=== PATIENT | female | born 1995 | race Caucasian/White ===

== ENCOUNTER 2017-03-29 19:19 | Emergency (ER) | payer OTHER ==
[~2017-03-29] VITALS: Ht 162.6 cm; Wt 48.1 kg
[~2017-03-29 19:19] MED LIST: AMOXICILLIN500 M1 PO; AMOXICILLIN500 MG PO; AUGMENTIN875 MG PO; BENTYL10 MG PO; COLACE100 MG PO; ENDOCET 5-3251 EACH PO; FLONASE16 G1 BOTH NARES; GUAIFENESIN600 M1 PO; MIRALAX255 GM PO; MOTRIN IB200 MG PO; MOTRIN800 MG PO; NEURONTIN300 MG PO; NORCO 5/3251 TABLET PO; SKELAXIN800 MG PO; TYLENOL EXTRA500 MG PO; TYLENOL REGULA325 MG PO; ULTRAM50 MG PO
[2017-03-29 20:33] LABS: HEMATOCRIT 35.6 % (36.0-46.0); MCH 30.5 PG (29.0-34.0); MCHC 35.4 G/DL (30.0-36.0); MCV 86.2 FL (83-99); MEAN PLAT.VOLUME 10.4 uM^3 (9.5-12.4); PLATELET COUNT 258 K/uL (156-360); RBC DIS.WIDTH-SD 37.8 % (39-53); RED BLOOD COUNT 4.13 M/uL (3.80-5.20); WHITE BLOOD COUNT 13.5 K/uL (4.1-10.2)
[2017-03-29 20:44] LABS: CHLORIDE 106 mEq/L (99-109); POTASSIUM 3.7 mEq/L (3.7-5.4); SODIUM 139 mEq/L (136-147)
[2017-03-29 20:46] LABS: GLUCOSE 96 mg/dL (70-99)
[2017-03-29 20:47] LABS: ANION GAP 10 MEQ/L (2-14)
[2017-03-29 20:50] LABS: GFR ESTIMATE (CALCULATED) > 59 mL/min/; UREA NITROGEN (BUN) 7 mg/dL (9-23)
[2017-03-29 20:52] LABS: CREATINE KINASE 134 IU/L (1-294); TOTAL CK 134 IU/L (1-294)
[2017-03-29 20:58] LABS: QUANTITATIVE HCG < 4.0 MIU/ML
[2017-03-29 20:59] LABS: CK-MB 1.2 ng/mL (0.0-4.9)
[2017-03-29 21:24] VITALS: BP 122/78
== END 2017-03-29 21:25 | disposition home or self-care (01) ==
LOC: EME 19:19
PROVIDERS: Physician Assistant
DX: S90.32XA Contusion of left foot, initial encounter (principal); W24.0XXA Contact with lifting devices, not elsewhere classified, initial encounter; Y93.F2 Activity, caregiving, lifting; Y99.0 Civilian activity done for income or pay
CPT/HCPCS: 73590; 73630; 80048; 82550; 82553; 83605; 83874 90; 84702; 85027; 99281; 99284